=== PATIENT | male | born 1980 | race Caucasian/White ===

== ENCOUNTER 2016-11-29 15:17 | Emergency (ER) | payer BC, OTHER ==
[~2016-11-29] VITALS: Ht 185.4 cm; Wt 99.8 kg
[2016-11-29] MEDS ORDERED: LISI-603 PO (15:31)
--- NOTE | 2016-11-29 15:46 | NUR ---
Dr Wilcox at the bedside for eval and exam.
[2016-11-29] MEDS ORDERED: LIDOCAINE HCL 2% 20 ML VIAL TP ONE (16:00)
[2016-11-29] MEDS ORDERED: LET TOPICAL SOLUTION 8 ML UDC TOP ONE (16:00)
[2016-11-29] MEDS ORDERED: LET TOPICAL SOLUTION 8 ML UDC ONE (16:03)
--- NOTE | 2016-11-29 16:55 | NUR ---
Patient discharged to home in stable conditon. Written and verbal after care instructions given. Patient verbalizes understanding of instructions.
[2016-11-29 16:56] VITALS: BP 139/92
== END 2016-11-29 16:57 | disposition home or self-care (01) ==
LOC: ER 15:18
DX: L02.416 Cutaneous abscess of left lower limb (principal); Z88.0 Allergy status to penicillin
CPT/HCPCS: A4663; J3490

== ENCOUNTER 2016-12-02 08:26 | Emergency (ER) | payer OTHER ==
[~2016-12-02] VITALS: Ht 185.4 cm; Wt 103.4 kg
[~2016-12-02 08:26] MED LIST: LISI-603 PO
--- NOTE | 2016-12-02 08:45 | NUR ---
Dr jose at the bedside.
--- NOTE | 2016-12-02 08:48 | NUR ---
Site cleaned and new dressing applied per MD order.
[2016-12-02 08:54] VITALS: BP 138/79
--- NOTE | 2016-12-02 08:55 | NUR ---
Patient discharged to home in stable conditon. Written and verbal after care instructions given. Patient verbalizes understanding of instructions.
--- NOTE | 2016-12-03 07:32 | NUR ---
left message on VM to discuss with patient if any side effects from bactrim which was accidently prescribed.
== END 2016-12-02 08:55 | disposition home or self-care (01) ==
LOC: ER 08:26
DX: Z48.817 Encounter for surgical aftercare following surgery on the skin and subcutaneous tissue (principal); I10 Essential (primary) hypertension; Z88.0 Allergy status to penicillin; Z88.2 Allergy status to sulfonamides
CPT/HCPCS: A4663